=== PATIENT | male | born 1970 | race Caucasian/White ===

== ENCOUNTER → 2020-03-22 | Outpatient (CLI) | payer BC ==
--- NOTE | 2020-03-22 16:55 | KCIC ---
Frontal chest radiograph and 2 views the right ribs without comparison for pain in the right mid and lateral rib status post fall 2 days ago. FINDINGS: The lungs are clear. Cardiomediastinum is grossly unremarkable. There is no definite radiographically discernible rib fracture. No pneumothorax or pleural effusion. IMPRESSION: 1. No definite rib fractures are identified. Electronically signed by: Carlos Gardner MD (03/22/2020 4:52 PM) [id number]
== END ==
LOC: KCIC 13:56
PROVIDERS: ATTEND Family Medicine
DX: R07.81 Pleurodynia (principal)
CPT/HCPCS: 71101

== ENCOUNTER → 2020-03-26 | Outpatient (CLI) | payer BC ==
--- NOTE | 2020-03-27 08:39 | RAD ---
CT of the chest without contrast: Clinical History: Reason: CONTIUSION OF R CHEST / Spl. Instructions: / History: . Axial helical images of the chest were obtained without contrast. The lungs and pleural margins are clear. There is no mediastinal or hilar lymphadenopathy. Impression: No significant findings. PQRS Compliance Statement: One or more of the following individualized dose reduction techniques were utilized for this examination: 1. Automated exposure control 2. Adjustment of the mA and/or kV according to patient size 3. Use of iterative reconstruction technique Electronically signed by: Juan Dey III, MD (03/27/2020 8:36 AM) [facility]
== END ==
LOC: CT 15:39
PROVIDERS: ATTEND Family Medicine
DX: S20.211A Contusion of right front wall of thorax, initial encounter (principal)
CPT/HCPCS: 71250